=== PATIENT | male | born 1975 | race Caucasian/White ===

== ENCOUNTER 2022-06-07 15:39 | Emergency (ER) | payer OTHER ==
[2022-06-07 16:20] VITALS: BP 145/101; PULSE 84; RESP 18; TEMP 98.1; BMI 25.1
[2022-06-07] MEDS ORDERED: PANTOPRAZOLE SODIUM 40 MG VIAL IVPUSH ONE (19:02)
[2022-06-07] MEDS ORDERED: MAG HYDROX/AL HYDROX/SIMETH 30 ML UNIT-DOSE CUP PO ONE (19:03)
[2022-06-07] MEDS ORDERED: PANTOPRAZOLE SODIUM 40 MG VIAL ONE (19:19)
[2022-06-07] MEDS ORDERED: MAG HYDROX/AL HYDROX/SIMETH 30 ML UNIT-DOSE CUP ONE (19:19)
[2022-06-07 20:23] LABS: BLOOD UREA NITROGEN 24.8 mg/dL (7-18); CALCIUM 8.6 mg/dL (8.5-10.1)
[2022-06-07 20:24] LABS: ALBUMIN 3.7 g/dl (3.4-5.0); MAGNESIUM 2.3 mg/dL (1.8-2.4)
[2022-06-07 20:26] LABS: CREATININE 1.3 mg/dL (0.55-1.3)
[2022-06-07 20:28] LABS: BILIRUBIN,TOTAL 1.1 mg/dL (0.2-1); TOT PROT 6.8 g/dl (6.4-8.2)
[2022-06-07 20:34] LABS: BASO % 0.9 % (0-2.0); EOS % 11.4 % (0-4.5); HEMATOCRIT 42.4 % (35.4-49); HEMOGLOBIN 13.8 GM/dL (11.7-16.9); LYMPH % 18.9 % (8-40); MCH 30.5 pg (25.7-33.7); MCHC 32.5 g/dl (32.0-35.9); MEAN CELL VOLUME 93.7 fl (80-96); MONO % 13.2 % (3.8-10.2); NEUT % 55.6 % (42.8-82.8); PLATELET COUNT 135 10^3/uL (134-434); RBC 4.53 M/mm3 (4.00-5.60); RDW 13.3 % (11.9-15.9); WHITE BLOOD COUNT 5.1 K/mm3 (4.0-10.0)
[2022-06-07 21:19] LABS: HIV INTERPRETATION NEGATIVE (NEGATIVE)
== END 2022-06-07 21:30 | disposition left against medical advice (07) ==
LOC: JER 15:39
PROC: 3E033GC Introduction of Other Therapeutic Substance into Peripheral Vein, Percutaneous Approach (ICD-10-PCS; principal; 2022-06-07)
DX: R09.89 Other specified symptoms and signs involving the circulatory and respiratory systems (principal)
CPT/HCPCS: 36415; 70360-TC-FY; 71046-TC-FY; 71260-TC; 74177-TC; 80053; 83690; 83735; 85025; 87389; 93005; 93010; 99285-25; Q9967

== ENCOUNTER 2022-11-22 06:54 | Emergency (ER) | payer OTHER ==
[2022-11-22 07:05] VITALS: BP 112/80; PULSE 83; RESP 18; TEMP 97.9; BMI 25.8
== END 2022-11-22 08:34 | disposition home or self-care (01) ==
LOC: JER 06:54
DX: R07.0 Pain in throat (principal); R09.89 Other specified symptoms and signs involving the circulatory and respiratory systems
CPT/HCPCS: 71046-TC-FY; 99283-25

== ENCOUNTER 2024-07-02 17:05 | Emergency (ER) | payer SELFPAY ==
[2024-07-02 17:13] VITALS: BP 127/86; PULSE 86; RESP 20; TEMP 97.5; BMI 28.7
[2024-07-02 20:35] LABS: HIV INTERPRETATION NEGATIVE (NEGATIVE)
== END 2024-07-02 19:00 | disposition home or self-care (01) ==
LOC: JERFT 17:05
DX: R21 Rash and other nonspecific skin eruption (principal); B35.6 Tinea cruris
CPT/HCPCS: 36415; 86803; 87389; 87522; 99283-25